=== PATIENT | male | born 1995 | race Asian ===

== ENCOUNTER 2018-03-01 16:01 | Emergency (ER) | payer OTHER ==
[~2018-03-01] VITALS: Ht 172.7 cm; Wt 64.9 kg
[2018-03-01 16:11] VITALS: BP_SYST 116
[2018-03-01] MEDS ORDERED: DIPH-TET-PERTUS Vaccine 0.5 ML VIAL (ADACEL) IM ONE (16:15)
[2018-03-01] MEDS ORDERED: LIDOCAINE 1% 10 MG/ML, 20 ML MDV IJ ONE (16:15)
[2018-03-01] MEDS ORDERED: BACITRACIN 1 GM OINT TP ONE (16:15)
[2018-03-01 17:15] VITALS: BP_SYST 110
== END 2018-03-01 17:15 | disposition home or self-care (01) ==
LOC: SED 16:01
DX: S81.812A Laceration without foreign body, left lower leg, initial encounter (principal); V19.9XXA Pedal cyclist (driver) (passenger) injured in unspecified traffic accident, initial encounter; Y93.55 Activity, bike riding; Y92.89 Other specified places as the place of occurrence of the external cause; Y99.8 Other external cause status
CPT/HCPCS: 12002; 73590; 90471; 90715; 99284; J2001